=== PATIENT | male | born 1995 | race Caucasian/White ===

== ENCOUNTER 2017-03-12 22:36 | Emergency (ER) | payer SELFPAY | END 2017-03-12 23:36 | disposition home or self-care (01) | LOC: D.ER 22:36 | DX: S02.2XXA Fracture of nasal bones, initial encounter for closed fracture (principal); Y04.0XXA Assault by unarmed brawl or fight, initial encounter; Y93.89 Activity, other specified; Y92.830 Public park as the place of occurrence of the external cause ==